=== PATIENT | female | born 1955 | race Caucasian/White ===

== ENCOUNTER → 2016-09-12 | Outpatient (CLI) | payer MEDICARE, MEDICAID ==
[~2016-09-12] MED LIST: BYSTOLIC5 MG PO; CEPHALEXIN500 M1 PO; DIFLUCAN150 M1 PO; GLUCOPHAGE850 MG PO; NEURONTIN800 MG PO; NORCO 325 MG-7.1 TA1 PO; NORCO 325 MG-7.1 TAB PO; ZYRTEC10 M3 PO
== END ==
LOC: RAD 12:14
DX: R10.30 Lower abdominal pain, unspecified (principal); M54.9 Dorsalgia, unspecified; K86.89 Other specified diseases of pancreas; K76.9 Liver disease, unspecified